=== PATIENT | male | born 1950 | race Caucasian/White ===

== ENCOUNTER 2019-08-22 12:23 | Outpatient (CLI) | payer MEDICARE, SELFPAY ==
[2019-08-22 12:40] LABS: Basophils Absolute Auto 0.03 K/mm3 (0.00-0.10); Basophils Percent Auto 0.7 % (0.0-1.0); Eosinophils Percent Auto 2.3 % (1.0-6.0); Hematocrit 36.9 % (37.0-46.0); Hemoglobin 12.4 g/dL (12.4-15.3); Immature Granulocyte Absolute 0.04 K/mm3 (0.00-0.00); Immature Granulocyte Percent A 0.9 % (0.0-0.0); Lymphocytes Absolute Auto 1.37 K/mm3 (1.10-4.50); Mean Corpuscular HGB Conc 33.6 g/dL (32.0-36.0); Mean Corpuscular Hemoglobin 32.1 pg (27.0-31.0); Mean Corpuscular Volume 95.6 fL (78.0-102.0); Mean Platelet Volume 8.8 fl (8.7-11.0); Monocytes Absolute Auto 0.46 K/mm3 (0.10-0.90); Monocytes Percent Auto 10.7 % (2.0-11.0); Neutrophils Absolute Auto 2.3 K/mm3 (1.7-7.2); Neutrophils Percent Auto 53.4 % (50.0-70.0); Platelet Count Result 229 K/mm3 (150-420); Red Blood Count 3.86 M/mm3 (4.70-6.10); Red Cell Distribution Width 12.6 % (11.6-14.4); White Blood Count 4.3 K/mm3 (4.8-10.8)
[2019-08-22 12:52] LABS: Hemoglobin A1C 5.2 % (<5.7)
[2019-08-22 13:26] LABS: Alanine Aminotransferase 41 U/L (16-63); Albumin Level 4.3 g/dL (3.4-5.0); Alkaline Phosphatase 79 U/L (46-116); Anion Gap 14.8 mmol/L (7-16); Aspartate Amino Transferase 28 U/L (15-37); Bilirubin,Total 0.5 mg/dL (0.00-1.00); Blood Urea Nitrogen 25 mg/dL (7-18); Calcium 8.9 mg/dL (8.5-10.1); Carbon Dioxide 26 mmol/L (21-32); Chloride 102 mmol/L (98-108); Cholesterol 193 mg/dL (0-200); Estimated Glomerular Filt Rate 60; Glucose 131 mg/dL (70-99); HDL Direct 35 mg/dL (40-60); LDL Cholesterol Calculated 108 mg/dL (<130); Osmolality Calculated 294 mOsm/kg (285-295); Potassium 3.8 mmol/L (3.5-5.1); Sodium 139 mmol/L (136-145); Total Protein 7.7 g/dL (6.4-8.2); Triglycerides 250 mg/dL (0-150)
[2019-08-22 13:58] LABS: Free T4 Free Thyroxine Reflex 0.87 ng/dL (0.76-1.46)
== END 2019-08-22 12:24 | disposition home or self-care (01) ==
LOC: CHSLAB 12:26
PROVIDERS: PCP Family Medicine; Visit Provider Family Medicine
DX: E78.5 Hyperlipidemia, unspecified (principal); E03.9 Hypothyroidism, unspecified; Z79.899 Other long term (current) drug therapy
CPT/HCPCS: 36415; 80053; 80061; 83036; 84439; 84443; 85025

== ENCOUNTER 2019-11-06 09:29 | Outpatient (CLI) | payer MEDICARE, SELFPAY ==
[2019-11-06 11:13] LABS: Thyroid Stimulating Hormone Reflex 6.63 u/IU/mL (0.36-3.74)
[2019-11-06 12:01] LABS: Free T4 Free Thyroxine Reflex 1.05 ng/dL (0.76-1.46)
== END 2019-11-06 09:30 | disposition home or self-care (01) ==
LOC: CHSLAB 09:33
PROVIDERS: PCP Nurse Practitioner Family; Visit Provider Nurse Practitioner Family
DX: E03.9 Hypothyroidism, unspecified (principal)
CPT/HCPCS: 36415; 84439; 84443

== ENCOUNTER → 2019-11-20 11:37 | Outpatient (REF) | payer MEDICARE, SELFPAY | LOC: ANHLAB 11:37 | PROVIDERS: PCP Nurse Practitioner Family; Visit Provider Nurse Practitioner | DX: D49.2 Neoplasm of unspecified behavior of bone, soft tissue, and skin (principal); C44.01 Basal cell carcinoma of skin of lip | CPT/HCPCS: 88305 ==

== ENCOUNTER → 2019-12-22 10:32 | Outpatient (REF) | payer MEDICARE, SELFPAY | LOC: ANHLAB 10:32 | PROVIDERS: PCP Family Medicine; Visit Provider Nurse Practitioner | DX: C44.01 Basal cell carcinoma of skin of lip (principal) | CPT/HCPCS: 88305; 88331 ==

== ENCOUNTER 2020-02-28 00:59 | Outpatient (CLI) | payer MEDICARE, SELFPAY ==
[2020-02-28 18:11] LABS: SARS-CoV-2 RNA PCR Negative
== END 2020-02-28 01:00 | disposition home or self-care (01) ==
LOC: ANHCOVIDDT 00:59
PROVIDERS: PCP Nurse Practitioner Family; Visit Provider Surgery
DX: Z01.812 Encounter for preprocedural laboratory examination (principal); Z11.59 Encounter for screening for other viral diseases
CPT/HCPCS: 87635; C9803; U0003

== ENCOUNTER → 2020-05-04 15:40 | Outpatient (REF) | payer MEDICARE, SELFPAY | LOC: ANHLAB 15:40 | PROVIDERS: PCP Nurse Practitioner Family; Visit Provider Nurse Practitioner | DX: C44.319 Basal cell carcinoma of skin of other parts of face (principal) | CPT/HCPCS: 88305 ==

== ENCOUNTER → 2020-06-14 09:44 | Outpatient (REF) | payer MEDICARE, SELFPAY | LOC: ANHLAB 09:44 | PROVIDERS: PCP Nurse Practitioner Family; Visit Provider Nurse Practitioner | DX: C44.319 Basal cell carcinoma of skin of other parts of face (principal) | CPT/HCPCS: 88305; 88331 ==

== ENCOUNTER 2020-09-03 09:15 | Emergency (ER) | payer MEDICARE, OTHER, SELFPAY ==
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
--- NOTE | ~2020-09-03 | XR_ITS ---
EXAMINATION:XR_CERV2-3V_CR DATE: 09/03/2020 10:30 INDICATION: Neck pain TECHNIQUE: AP, lateral, lateral swimmers and odontoid views of the cervical spine are provided. COMPARISON: 11/06/2018 FINDINGS: Alignment is normal. The odontoid is intact. No fracture is identified. The vertebral body heights are maintained. There is severe loss of intervertebral disc space height at multiple levels i n the cervical spine. Prevertebral soft tissues are normal. Examination is slightly limited by body h abitus. IMPRESSION: 1. Severe cervical spondylosis without acute findings or significant interval change. Examination sli ghtly limited by body habitus. If there is high clinical concern for cervical spine fracture, further evaluation with cervical spine CT would be recommended. Reviewed, dictated and finalized at location A. R ERECTOR HELPER IMPRESSION: 1. Severe cervical spondylosis without acute findings or significant interval c hange. Examination slightly limited by body habitus. If there is high clinical concern for cervical spine fracture, further evaluation with cervical spine CT would be recommended.
--- NOTE | ~2020-09-03 | XR_ITS ---
EXAMINATION: XR lumbar spine 2-3V DATE: 09/03/2020 10:30 INDICATION: Low back pain TECHNIQUE: Anteroposterior and lateral views of the lumbar spine, and cone-down lateral view of the l umbosacral junction were obtained. COMPARISON: MRI, 08/11/2016 FINDINGS: There are changes of anterior fusion procedure at L5-S1 with interbody device. There are ch anges of posterior fusion from L4 through S1. There are millimeters of stable retrolisthesis of L2 on L3 and L3 on L4. There is mild loss of intervertebral disc space height throughout the lumbar spine. No fracture is identified. The vertebral body heights are maintained. Calcified atherosclerosis is n oted. IMPRESSION: 1. Severe lumbar spondylosis without acute findings or significant interval change. Reviewed, dictated and finalized at location A. LS INSTRUCTOR IMPRESSION: 1. Severe lumbar spondylosis without acute findings or significant interval kody remae.
--- NOTE | ~2020-09-03 | XR_ITS ---
EXAMINATION: XR thoracic spine 2V DATE: 09/03/2020 10:31 INDICATION: Back pain TECHNIQUE: AP, lateral and lateral swimmer's views of the thoracic spine were obtained. COMPARISON: 10/08/2018 FINDINGS: There is chronic severe loss of intervertebral disc space height in the midthoracic spine. No fracture is identified. The vertebral body heights are maintained. Small degenerative osteophytes project from the anterior endplates of multiple vertebral bodies. There is levocurvature of the lower thoracic spine. IMPRESSION: 1. Severe mid thoracic spondylosis without acute findings. Reviewed, dictated and finalized at location A. RVISOR CELL MAINTENANCE
[2020-09-03 09:20] VITALS: BP 163/82; PULSE 65; RESP 18; TEMP 37; O2SAT 95
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
[2020-09-03 10:36] LABS: Hematocrit 33.4 % (37.0-46.0); Hemoglobin 11.1 g/dL (12.4-15.3); Mean Corpuscular HGB Conc 33.2 g/dL (32.0-36.0); Mean Corpuscular Hemoglobin 32.7 pg (27.0-31.0); Mean Corpuscular Volume 98.5 fL (78.0-102.0); Mean Platelet Volume 8.8 fl (8.7-11.0); Platelet Count Result 243 K/mm3 (150-420); Red Blood Count 3.39 M/mm3 (4.70-6.10); Red Cell Distribution Width 13.2 % (11.6-14.4); White Blood Count 4.6 K/mm3 (4.8-10.8)
[2020-09-03 10:52] LABS: Alanine Aminotransferase 40 U/L (16-63); Albumin Level 4.2 g/dL (3.4-5.0); Alkaline Phosphatase 68 U/L (46-116); Anion Gap 8 mmol/L (8-16); Aspartate Amino Transferase 16 U/L (15-37); Bilirubin,Total 0.6 mg/dL (0.00-1.00); Blood Urea Nitrogen 20 mg/dL (7-18); Carbon Dioxide 27 mmol/L (21-32); Chloride 103 mmol/L (98-108); Estimated Glomerular Filt Rate > 60; Glucose 99 mg/dL (70-99); Osmolality Calculated 288 mOsm/kg (285-295); Potassium 4.5 mmol/L (3.5-5.1); Sodium 138 mmol/L (136-145); Total Protein 7.4 g/dL (6.4-8.2)
[2020-09-03 11:10] VITALS: RESP 16
== END 2020-09-03 11:10 | disposition home or self-care (01) ==
PROVIDERS: Nurse Practitioner; Emergency Provider Emergency Medicine; PCP Nurse Practitioner Family
DX: T14.8XXA Other injury of unspecified body region, initial encounter (principal); S20.212A Contusion of left front wall of thorax, initial encounter; V89.2XXA Person injured in unspecified motor-vehicle accident, traffic, initial encounter
CPT/HCPCS: 36415; 71110; 72040; 72070; 72100; 80053; 85027; 99282; 99284

== ENCOUNTER 2022-08-24 00:51 | Day surgery (SDC) | payer MEDICARE, SELFPAY ==
[2022-08-08 14:23] VITALS: BMI 43.8
[2022-08-24 06:49] VITALS: BP 171/75; PULSE 71; RESP 18; TEMP 36.1; O2SAT 95; BMI 41.6
[2022-08-24] MEDS: LACTATED RINGERS 1,000 ML 150 ML IV CONT (07:02)
--- NOTE | 2022-08-24 07:31 | PM.HPGS ---
History of Present Illness History of Present Illness Consent: Risks, benefits, and alternatives have been discussed and questions answered. Patient agrees to proceed with procedure. Chief complaint: hx colon polyps Narrative: Rikki Eduardo is a 71 year old male Presents for colonoscopy. Patient gives a history of colitis diagnosed in [place] many years ago patient apparently maintained on sulfasalazine. He is uncertain of the diagnosis of ulcerative colitis however on questioning. Patient reports his bowel habits are normal if he takes Metamucil. He has remained on sulfasalazine for many years. Patient was found to have a colon polyp most recently 2016. Also apparently in previous hospital. Patient states his bowel habits are normal. Additionally he stay he was diagnosed with Genao's esophagus which she is maintained on omeprazole daily. Patient denies any heartburn, dysphagia or weight loss. He has had no bleeding. His last endoscopy he states was perhaps 10 years ago in [facility] Review of Systems Review of Systems: review of systems noncontributory. [facility] Past Medical History Medical History (Updated 08/24/22 @ 07:34 by Dillon Lim MD) Chronic low back pain Chronic obstructive pulmonary disease Colitis Depression CARINA (generalized anxiety disorder) Hyperlipidemia Hypertension Obstructive sleep apnea treated with continuous positive airway pressure (CPAP) Surgical History Surgical History Basal cell carcinoma Carpal tunnel syndrome H/O hernia repair History of back surgery Family History Family History Sibling Family history of obesity Family history of migraine headaches Father Family history of malignant neoplasm of brain Patient's father is Mother Family history of coronary artery disease Other Depression Family history of alcoholism Family history of hearing loss Family history of mental disorder Hypertension Social History Social History Smoking status: Former smoker Tobacco type: cigarettes and e-cigarettes/vaping Second hand tobacco smoke exposure: Yes Smoking end date: 12/21/14 Additional smoking assessment comments: quit vaping 7 months ago Alcohol intake: current Substance use: never Living arrangements: with family Occupation/Education: unemployed Spiritual care concerns: No Meds Home Medications and Allergies Home Medications Medication Instructions Recorded Confirmed Type buspirone 10 mg tablet 10 mg PO BID 08/21/19 08/24/22 History cyanocobalamin (vitamin B-12) 250 500 mcg PO DAILY 08/21/19 08/24/22 History mcg tablet (Vitamin B-12) glucosamine HCl 1,500 mg tablet 1,500 mg PO BID 08/21/19 08/24/22 History irbesartan 150 mg tablet 300 mg PO DAILY 08/21/19 08/24/22 History meloxicam 15 mg tablet 15 mg PO DAILY 08/21/19 08/24/22 History pravastatin 20 mg tablet 20 mg PO DAILY 08/21/19 08/24/22 History trazodone 50 mg tablet 50 mg PO DAILY 08/21/19 08/24/22 History bupropion HCl 150 mg 24 hr tablet, 150 mg PO BID #180 tabs 08/29/19 08/24/22 Rx extended release omeprazole 40 mg capsule,delayed 40 mg PO DAILY #30 caps 09/05/19 08/24/22 Rx release albuterol sulfate 90 mcg/actuation 1 inhalation inhalation Q4H PRN 09/17/19 08/24/22 Rx aerosol inhaler (Ventolin HFA) shortness of breath or wheezing #6.7 grams sulfasalazine 500 mg tablet 1 gm PO QID #240 tabs 09/19/19 08/24/22 Rx fluticasone furoate 27.5 1 spray intranasal DAILY #18.2 mL 10/07/19 08/24/22 Rx mcg/actuation nasal spray,suspension lorazepam 1 mg tablet 1 mg PO BID PRN anxiety #60 tabs 10/08/19 08/24/22 Rx fluticasone propionate 50 1 spray intranasal DAILY #18.2 mL 10/22/19 08/24/22 Rx mcg/actuation nasal spray,suspension (Allergy Relief (fluticasone)) lorata
--- NOTE | 2022-08-24 07:50 | WPDANESEPPF ---
Anes - Initial Pre Proc Eval Procedure: Operation Date: 08/24/22 08:00 Proposed Procedures p Screening Colonoscopy - Dillon Lim MD Date/Time: 08/24/22 07:50 Surgeon: Dillon Lim MD Pre Op Diagnosis: hx colon polyps Patient Data Age: 71 Gender: M Height: 1.7 m Weight: 120.7 kg Last Vital Signs Temp 96.9 F L 08/24/22 06:49 Pulse 71 08/24/22 06:49 Resp 18 08/24/22 06:49 BP 171/75 H 08/24/22 06:49 Pulse Ox 95 08/24/22 06:49 O2 Del Method Room Air 08/24/22 06:49 Allergies Allergy/AdvReac Type Severity Reaction Status Date / Time No Known Allergies Allergy Verified 08/24/22 06:45 Home Medications Medication Instructions Recorded Confirmed Type buspirone 10 mg tablet 10 mg PO BID 08/21/19 08/24/22 History cyanocobalamin (vitamin B-12) 250 500 mcg PO DAILY 08/21/19 08/24/22 History mcg tablet (Vitamin B-12) glucosamine HCl 1,500 mg tablet 1,500 mg PO BID 08/21/19 08/24/22 History irbesartan 150 mg tablet 300 mg PO DAILY 08/21/19 08/24/22 History meloxicam 15 mg tablet 15 mg PO DAILY 08/21/19 08/24/22 History pravastatin 20 mg tablet 20 mg PO DAILY 08/21/19 08/24/22 History trazodone 50 mg tablet 50 mg PO DAILY 08/21/19 08/24/22 History bupropion HCl 150 mg 24 hr tablet, 150 mg PO BID #180 tabs 08/29/19 08/24/22 Rx extended release omeprazole 40 mg capsule,delayed 40 mg PO DAILY #30 caps 09/05/19 08/24/22 Rx release albuterol sulfate 90 mcg/actuation 1 inhalation inhalation Q4H PRN 09/17/19 08/24/22 Rx aerosol inhaler (Ventolin HFA) shortness of breath or wheezing #6.7 grams sulfasalazine 500 mg tablet 1 gm PO QID #240 tabs 09/19/19 08/24/22 Rx fluticasone furoate 27.5 1 spray intranasal DAILY #18.2 mL 10/07/19 08/24/22 Rx mcg/actuation nasal spray,suspension lorazepam 1 mg tablet 1 mg PO BID PRN anxiety #60 tabs 10/08/19 08/24/22 Rx fluticasone propionate 50 1 spray intranasal DAILY #18.2 mL 10/22/19 08/24/22 Rx mcg/actuation nasal spray,suspension (Allergy Relief (fluticasone)) loratadine 10 mg tablet 10 mg PO DAILY PRN allergy 10/22/19 08/24/22 Rx symptoms #30 tabs levothyroxine 25 mcg tablet 50 mcg PO DAILY 02/24/20 08/24/22 History risperidone 2 mg tablet 2 mg PO BID #60 tabs 12/17/20 08/24/22 Rx budesonide 160 mcg-glycopyr 9 2 inh inhalation BID 08/08/22 08/24/22 History mcg-formot 4.8 mcg/actuation HFA inhaler (Breztri Aerosphere) Patient hx anesthesia problems: none Family hx anesthesia problems: none Results Review: All pre-operative results and documents have been reviewed as part of the pre-operative evaluation. [facility] Past Medical History Medical History (Updated 08/24/22 @ 07:34 by Dillon Lim MD) Chronic low back pain Chronic obstructive pulmonary disease Colitis Depression CARINA (generalized anxiety disorder) Hyperlipidemia Hypertension Obstructive sleep apnea treated with continuous positive airway pressure (CPAP) Surgical History Surgical History Basal cell carcinoma Carpal tunnel syndrome H/O hernia repair History of back surgery Family History Family History Sibling Family history of obesity Family history of migraine headaches Father Family history of malignant neoplasm of brain Patient's father is Mother Family history of coronary artery disease Other Depression Family history of alcoholism Family history of hearing loss Family history of mental disorder Hypertension Social History Social History Smoking status: Former smoker Tobacco type: cigarettes and e-cigarettes/vaping Second hand tobacco smoke exposure: Yes Smoking end date: 12/21/14 Additional smoking assessment comments: quit vaping 7 months ago Alcohol intake: current Substance use: never Living arrangements: with
[2022-08-24 08:31] VITALS: BP 155/70; PULSE 73; RESP 20; O2SAT 96
[2022-08-24 08:41] VITALS: BP 142/75; PULSE 70; RESP 20; O2SAT 96
--- NOTE | 2022-08-24 08:44 | SUR.OPER ---
Sigmoid colon polyp not retrieved, Dr. Lim notified.
[2022-08-24 08:51] VITALS: BP 152/70; PULSE 70; RESP 20; O2SAT 96
== END 2022-08-24 09:02 | disposition home or self-care (01) ==
PROVIDERS: PCP Nurse Practitioner Family; Visit Provider Internal Medicine Gastroenterology
PROC: 0DJD8ZZ Inspection of Lower Intestinal Tract, Via Natural or Artificial Opening Endoscopic (ICD-10-PCS; CPT 45378; principal; 2022-08-24 08:00)
DX: Z12.11 Encounter for screening for malignant neoplasm of colon (principal); K64.8 Other hemorrhoids; D12.2 Benign neoplasm of ascending colon; D12.3 Benign neoplasm of transverse colon; K63.5 Polyp of colon; Z87.19 Personal history of other diseases of the digestive system; J44.9 Chronic obstructive pulmonary disease, unspecified; I10 Essential (primary) hypertension; E78.5 Hyperlipidemia, unspecified; F41.1 Generalized anxiety disorder; F32.A Depression, unspecified; G47.33 Obstructive sleep apnea (adult) (pediatric); Z87.891 Personal history of nicotine dependence; Z79.51 Long term (current) use of inhaled steroids; E66.01 Morbid (severe) obesity due to excess calories; Z68.41 Body mass index [BMI] 40.0-44.9, adult
CPT/HCPCS: 45385; 45380; 88305; A9270; J2704; J7120

== ENCOUNTER 2022-09-28 01:16 | Day surgery (SDC) | payer MEDICARE, SELFPAY ==
[2022-09-15 09:47] VITALS: BMI 41.6
[2022-09-28 09:12] VITALS: BP 180/81; PULSE 71; RESP 24; TEMP 36.2; O2SAT 97
[2022-09-28] MEDS: LACTATED RINGERS 1,000 ML 150 ML IV CONT (09:18)
--- NOTE | 2022-09-28 09:28 | WPDANESEPPF ---
Anes - Initial Pre Proc Eval Procedure: Operation Date: 09/28/22 10:00 Proposed Procedures p Esophagogastroduodenoscopy - Dillon Lim MD Date/Time: 09/28/22 09:28 Surgeon: Dillon Lim MD Pre Op Diagnosis: Genao's Esophagus Patient Data Age: 71 Gender: M Height: 1.7 m Weight: 120.7 kg Last Vital Signs Temp 97.2 F L 09/28/22 09:12 Pulse 71 09/28/22 09:12 Resp 24 H 09/28/22 09:12 BP 180/81 H 09/28/22 09:12 Pulse Ox 97 09/28/22 09:12 O2 Del Method Room Air 09/28/22 09:12 Allergies Allergy/AdvReac Type Severity Reaction Status Date / Time No Known Allergies Allergy Verified 09/28/22 09:10 Home Medications Medication Instructions Recorded Confirmed Type buspirone 10 mg tablet 10 mg PO BID 08/21/19 09/15/22 History cyanocobalamin (vitamin B-12) 250 500 mcg PO DAILY 08/21/19 09/15/22 History mcg tablet (Vitamin B-12) glucosamine HCl 1,500 mg tablet 1,500 mg PO BID 08/21/19 09/15/22 History irbesartan 150 mg tablet 300 mg PO DAILY 08/21/19 09/15/22 History meloxicam 15 mg tablet 15 mg PO DAILY 08/21/19 09/15/22 History pravastatin 20 mg tablet 20 mg PO DAILY 08/21/19 09/15/22 History trazodone 50 mg tablet 50 mg PO DAILY 08/21/19 09/15/22 History bupropion HCl 150 mg 24 hr tablet, 150 mg PO BID #180 tabs 08/29/19 09/15/22 Rx extended release omeprazole 40 mg capsule,delayed 40 mg PO DAILY #30 caps 09/05/19 09/15/22 Rx release albuterol sulfate 90 mcg/actuation 1 inhalation inhalation Q4H PRN 09/17/19 09/15/22 Rx aerosol inhaler (Ventolin HFA) shortness of breath or wheezing #6.7 grams sulfasalazine 500 mg tablet 1 gm PO QID #240 tabs 09/19/19 09/15/22 Rx fluticasone furoate 27.5 1 spray intranasal DAILY #18.2 mL 10/07/19 09/15/22 Rx mcg/actuation nasal spray,suspension lorazepam 1 mg tablet 1 mg PO BID PRN anxiety #60 tabs 10/08/19 09/15/22 Rx fluticasone propionate 50 1 spray intranasal DAILY #18.2 mL 10/22/19 09/15/22 Rx mcg/actuation nasal spray,suspension (Allergy Relief (fluticasone)) loratadine 10 mg tablet 10 mg PO DAILY PRN allergy 10/22/19 09/15/22 Rx symptoms #30 tabs levothyroxine 25 mcg tablet 50 mcg PO DAILY 02/24/20 09/15/22 History risperidone 2 mg tablet 2 mg PO BID #60 tabs 12/17/20 09/15/22 Rx budesonide 160 mcg-glycopyr 9 2 inh inhalation BID 08/08/22 09/15/22 History mcg-formot 4.8 mcg/actuation HFA inhaler (Breztri Aerosphere) Patient hx anesthesia problems: none Family hx anesthesia problems: none Results Review: All pre-operative results and documents have been reviewed as part of the pre-operative evaluation. [facility] Past Medical History Medical History (Updated 08/24/22 @ 07:34 by Dillon Lim MD) Chronic low back pain Chronic obstructive pulmonary disease Colitis Depression CARINA (generalized anxiety disorder) Hyperlipidemia Hypertension Obstructive sleep apnea treated with continuous positive airway pressure (CPAP) Surgical History Surgical History Basal cell carcinoma Carpal tunnel syndrome H/O hernia repair History of back surgery Family History Family History Sibling Family history of obesity Family history of migraine headaches Father Family history of malignant neoplasm of brain Patient's father is Mother Family history of coronary artery disease Other Depression Family history of alcoholism Family history of hearing loss Family history of mental disorder Hypertension Social History Social History Smoking status: Former smoker Tobacco type: cigarettes and e-cigarettes/vaping Second hand tobacco smoke exposure: Yes Smoking end date: 12/21/14 Additional smoking assessment comments: QUIT VAPING 11/2021?? Alcohol intake: current Substance use: never Living arrangements:
[2022-09-28] MEDS: ALBUTEROL SULFATE (*SP) AEROSOL 1 PUFF 2 PUFF INHALATION (09:30)
--- NOTE | 2022-09-28 09:53 | PM.HPGS ---
History of Present Illness History of Present Illness Consent: Risks, benefits, and alternatives have been discussed and questions answered. Patient agrees to proceed with procedure. Chief complaint: Genao's Esophagus Narrative: Rikki Eduardo is a 71 year old male Presents for EGD. Patient has a prior diagnosis of Genao's esophagus for which he is maintained on omeprazole 40mg p.o. daily. Patient denies any difficulty swallowing. He denies any bleeding or weight loss. Patient is heartburn appears well controlled with medication. Patient also has a history of ulcerative colitis maintained on sulfasalazine. This appears stable. Recent colonoscopy revealed multiple colon polyps colitis appeared in remission. Surveillance colonoscopy has been advised at 3 year interval in the future. Review of Systems Review of Systems: Review of systems noncontributory. [facility] Past Medical History Medical History (Updated 08/24/22 @ 07:34 by Dillon Lim MD) Chronic low back pain Chronic obstructive pulmonary disease Colitis Depression CARINA (generalized anxiety disorder) Hyperlipidemia Hypertension Obstructive sleep apnea treated with continuous positive airway pressure (CPAP) Surgical History Surgical History Basal cell carcinoma Carpal tunnel syndrome H/O hernia repair History of back surgery Family History Family History Sibling Family history of obesity Family history of migraine headaches Father Family history of malignant neoplasm of brain Patient's father is Mother Family history of coronary artery disease Other Depression Family history of alcoholism Family history of hearing loss Family history of mental disorder Hypertension Social History Social History Smoking status: Former smoker Tobacco type: cigarettes and e-cigarettes/vaping Second hand tobacco smoke exposure: Yes Smoking end date: 12/21/14 Additional smoking assessment comments: QUIT VAPING 11/2021?? Alcohol intake: current Substance use: never Living arrangements: alone Occupation/Education: unemployed Spiritual care concerns: No Meds Home Medications and Allergies Home Medications Medication Instructions Recorded Confirmed Type buspirone 10 mg tablet 10 mg PO BID 08/21/19 09/15/22 History cyanocobalamin (vitamin B-12) 250 500 mcg PO DAILY 08/21/19 09/15/22 History mcg tablet (Vitamin B-12) glucosamine HCl 1,500 mg tablet 1,500 mg PO BID 08/21/19 09/15/22 History irbesartan 150 mg tablet 300 mg PO DAILY 08/21/19 09/15/22 History meloxicam 15 mg tablet 15 mg PO DAILY 08/21/19 09/15/22 History pravastatin 20 mg tablet 20 mg PO DAILY 08/21/19 09/15/22 History trazodone 50 mg tablet 50 mg PO DAILY 08/21/19 09/15/22 History bupropion HCl 150 mg 24 hr tablet, 150 mg PO BID #180 tabs 08/29/19 09/15/22 Rx extended release omeprazole 40 mg capsule,delayed 40 mg PO DAILY #30 caps 09/05/19 09/15/22 Rx release albuterol sulfate 90 mcg/actuation 1 inhalation inhalation Q4H PRN 09/17/19 09/15/22 Rx aerosol inhaler (Ventolin HFA) shortness of breath or wheezing #6.7 grams sulfasalazine 500 mg tablet 1 gm PO QID #240 tabs 09/19/19 09/15/22 Rx fluticasone furoate 27.5 1 spray intranasal DAILY #18.2 mL 10/07/19 09/15/22 Rx mcg/actuation nasal spray,suspension lorazepam 1 mg tablet 1 mg PO BID PRN anxiety #60 tabs 10/08/19 09/15/22 Rx fluticasone propionate 50 1 spray intranasal DAILY #18.2 mL 10/22/19 09/15/22 Rx mcg/actuation nasal spray,suspension (Allergy Relief (fluticasone)) loratadine 10 mg tablet 10 mg PO DAILY PRN allergy 10/22/19 09/15/22 Rx symptoms #30 tabs levothyroxine 25 mcg tablet 50 mcg PO DAILY 02/24/20 09/15/22 History risperidone 2 mg tablet 2 mg PO BID #60 tabs 12/17/20
[2022-09-28] MEDS: BENZOCAINE (*SP) 60 ML SPRAY CAN (HURRICAINE) 1 SPRAY MUCOUS MEM (10:07)
[2022-09-28 10:18] VITALS: BP 162/62; PULSE 69; RESP 20; O2SAT 96
[2022-09-28 10:28] VITALS: BP 172/85; PULSE 62; RESP 20; O2SAT 97
[2022-09-28 10:38] VITALS: BP 174/87; PULSE 64; RESP 20; O2SAT 98
== END 2022-09-28 10:46 | disposition home or self-care (01) ==
PROVIDERS: PCP Nurse Practitioner Family; Visit Provider Internal Medicine Gastroenterology
PROC: 0DJ08ZZ Inspection of Upper Intestinal Tract, Via Natural or Artificial Opening Endoscopic (ICD-10-PCS; CPT 43235; principal; 2022-09-28 10:00)
DX: Z09 Encounter for follow-up examination after completed treatment for conditions other than malignant neoplasm (principal); Z87.19 Personal history of other diseases of the digestive system; J44.9 Chronic obstructive pulmonary disease, unspecified; I10 Essential (primary) hypertension; E78.5 Hyperlipidemia, unspecified; G47.33 Obstructive sleep apnea (adult) (pediatric); F32.A Depression, unspecified; F41.1 Generalized anxiety disorder; Z87.891 Personal history of nicotine dependence; E66.01 Morbid (severe) obesity due to excess calories; Z68.41 Body mass index [BMI] 40.0-44.9, adult; Z79.51 Long term (current) use of inhaled steroids
CPT/HCPCS: 43239; 88305; A9270; J2704; J7120